=== PATIENT | male | born 1985 | race Two or more races ===

== ENCOUNTER 2022-06-23 | Outpatient (REF) | payer OTHER, SELFPAY ==
[2022-06-25 13:43] LABS: H Pylori Breath Test Negative (Negative)
== END 2022-06-23 00:01 | disposition home or self-care (01) ==
LOC: HO.LNP
PROVIDERS: Visit Provider Surgery
DX: E66.01 Morbid (severe) obesity due to excess calories (principal); K21.9 Gastro-esophageal reflux disease without esophagitis
CPT/HCPCS: 83013

== ENCOUNTER 2022-06-23 11:57 | Outpatient (REF) | payer OTHER, SELFPAY ==
--- NOTE | ~2022-06-23 | XR_ITS ---
EXAMINATION: XR CHEST CLINICAL INFORMATION: Obesity COMPARISON: None TECHNIQUE: 2 views of the chest were obtained. FINDINGS: The cardiac and mediastinal contours are normal. The lungs are clear. No pleural effusion or pneumothorax. Degenerative changes of the spine. XR/XR chest 2V IMPRESSION: No evidence for acute disease in the chest.
--- NOTE | 2022-06-23 12:03 | ECG_ITS ---
Test Reason : OBESITY Blood Pressure : / mmHG Vent. Rate : 070 BPM Atrial Rate : 070 BPM P-R Int : 180 ms QRS Dur : 094 ms QT Int : 354 ms P-R-T Axes : 045 047 016 degrees QTc Int : 382 ms Normal sinus rhythm Normal ECG No previous ECGs available Referred By: Jluis Johnson Electronically Signed By:SHAYLA TROY MD
[2022-06-23 12:24] LABS: MANUAL DIFF FLAG NO
[2022-06-23 13:52] LABS: Basophils Percent Auto 0.5 % (0-2); Eosinophils Absolute Auto 0.3 X10*3/uL (0.0-0.4); Hematocrit 45.1 % (42.0-52.0); Hemoglobin 15.3 g/dl (14.0-18.0); Lymphocytes Absolute Auto 1.1 X10*3/uL (1.2-4.9); Lymphocytes Percent Auto 27.2 % (20-40); Mean Corpuscular HGB Conc 33.9 g/dl (31.0-36.0); Mean Corpuscular Hemoglobin 28.5 pg (27.0-33.0); Mean Corpuscular Volume 84.1 fL (80.0-98.0); Mean Platelet Volume 11.7 fL (9.4-12.4); Monocytes Absolute Auto 0.3 X10*3/uL (0.1-1.2); Monocytes Percent Auto 7.2 % (2-11); Neutrophils Absolute Auto 2.5 x10*3/uL (2.0-8.3); Neutrophils Percent Auto 59.1 % (45-73); Platelet Count 206 X10*3/uL (160-400); Red Blood Count 5.36 X10*6/uL (4.60-5.80); Red Cell Distribution Width 13.2 % (11.0-16.0); White Blood Count 4.2 X10*3/uL (4.8-10.8)
[2022-06-23 14:22] LABS: Estimated Average Glucose 120 mg/dL; Hemoglobin A1c % 5.8 %
[2022-06-23 14:24] LABS: Alanine Aminotransferase 23 U/L (0-40); Albumin Level 4.4 g/dL (3.5-5.0); Alkaline Phosphatase 66 U/L (39-117); Anion Gap 14 (12-20); Aspartate Amino Transferase 15 U/L (5-37); Bilirubin Total 0.4 mg/dL (0.0-1.0); Blood Urea Nitrogen 23 mg/dL (9-16); C Reactive Protein 0.59 mg/dL (< or = 0.50); Carbon Dioxide 24 mmol/L (22-29); Chloride 107 mmol/L (96-108); Cholesterol 164 mg/dL; Estimated Glomerular Filt Rate > 60; Glucose Random 108 mg/dL (60-115); HDL Cholesterol 29 mg/dL; Iron 80 mcg/dL (45-160); LDL Cholesterol Calculated 123 mg/dl; Percent Iron Saturation 27 % (15-50); Potassium 4.6 mmol/L (3.3-5.1); Sodium 140 mmol/L (135-145); Total Iron Binding Capacity 299 mcg/dL (228-428); Total Protein 7.4 g/dL (6.5-8.0); Triglycerides 63 mg/dL; Unsaturated Iron Binding 219 ug/dL
[2022-06-23 14:46] LABS: Ferritin 151 ng/mL (20-250); Insulin 17 uU/mL (2-29); TSH reflex Free T4 0.99 uIU/mL (0.32-4.0)
[2022-06-23 14:51] LABS: Vitamin B12 429 pg/mL (200-900)
[2022-06-23 15:27] LABS: Vitamin D 25-OH Total 13.6 ng/mL (>30)
[2022-06-24 10:56] LABS: Calcium (PTHI) 9.2 mg/dL (8.6-10.3); PTHI 71 pg/mL (16-77)
[2022-06-28 06:41] LABS: Vitamin B1 9 nmol/L (8-30)
[2022-06-28 22:07] LABS: Zinc 87 mcg/dL (60-130)
[2022-07-01 10:54] LABS: Vitamin A 50 mcg/dL (38-98)
== END 2022-06-23 11:58 | disposition home or self-care (01) ==
LOC: HO.XRAY 11:57
PROVIDERS: Visit Provider Surgery
DX: E66.01 Morbid (severe) obesity due to excess calories (principal); K21.9 Gastro-esophageal reflux disease without esophagitis
CPT/HCPCS: 36415; 71046; 80053; 80061; 82306; 82607; 82728; 82746; 83036; 83525; 83540; 83970; 84425; 84443; 84590; 84630; 85025; 86140; 93005; 99211

== ENCOUNTER → 2022-07-21 10:14 | Outpatient (BNVA) | payer OTHER, SELFPAY | PROVIDERS: Visit Provider Dietitian, Registered | DX: E66.9 Obesity, unspecified (principal); Z68.38 Body mass index [BMI] 38.0-38.9, adult | CPT/HCPCS: 97802 ==

== ENCOUNTER 2022-08-11 08:54 | Outpatient (REF) | payer OTHER, SELFPAY ==
--- NOTE | ~2022-08-11 | FL_ITS ---
EXAMINATION: XR FLUOROSCOPY UPPER GI WITH AIR CLINICAL INFORMATION: Morbid/severe obesity due to excess calories. COMPARISON: None. TECHNIQUE: Routine upper GI air-contrast study was performed. FINDINGS: Following oral administration of thick barium and effervescent granules, there is normal propagation of bolus from the oral cavity through the pharynx and esophagus and into the stomach without any evidence of obstruction, narrowing or stricture. On placing patient supine and prone lying, the course, caliber and peristalsis of stomach, duodenal bulb and the sweep are normal. The mucosal pattern of stomach, duodenal bulb and the CBD is normal. No gastroesophageal reflux or hiatal hernia seen. FLUOROSCOPY TIME: 1.9 minutes. DOSE AREA PRODUCT: 40.355 uGy-m2 (microgray-meter squared). FL/FL upper GI w air IMPRESSION: Unremarkable upper GI air-contrast study.
--- NOTE | ~2022-08-11 | US_ITS ---
EXAMINATION: US COMPLETE ABDOMEN WITH LIVER ELASTOGRAPHY CLINICAL INFORMATION: Morbid/severe obesity due to excess calories. COMPARISON: None. TECHNIQUE: Real-time imaging of the abdominal viscera. Noninvasive ultrasound liver fibrosis assessment is performed using Lisa ElastPQ point quantification shear wave elastography (2D-SWE) with a C5-2 MHz transducer. Multiple elastography samples are obtained. FINDINGS: PANCREAS: The pancreatic duct measures 0.2 cm The visualized pancreatic head and body are normal in appearance. The remainder of the pancreas is obscured from visualization by the overlying bowel gas. ABDOMINAL AORTA: The proximal, middle, and distal aortic segments are normal in caliber. INFERIOR VENA CAVA: Visualized portions are normal. LIVER: The liver demonstrates normal size, contour and increased echogenicity. No focal lesion or intrahepatic biliary duct dilatation. The right lobe measures 20.8 cm in length. The left lobe measures 11.7 cm in length. Portal flow is hepatopedal Shear wave liver elastography median stiffness is 1.80 m/s (reference: normal median stiffness is 1.3 m/s or less). IQR/median stiffness to assess sampling precision is 0.04 (reference: good quality data set is IQR/median stiffness of 0.15 or less). GALLBLADDER: There is a small gallbladder nonmobile echogenic polyp measuring 0.5 x 0.4 x 0.6 cm. Several additional polyps are noted as well. There is a ring down artifact seen along the gallbladder wall likely adenomyomatosis. No echogenic stones seen. COMMON BILE DUCT: Normal in caliber measuring 0.6 cm in diameter. RIGHT KIDNEY: Normal. No hydronephrosis. No renal calculi or focal parenchymal lesions. The kidney measures 11.3 cm in maximum dimension. LEFT KIDNEY: Normal. No hydronephrosis. No renal calculi or focal parenchymal lesions. The kidney measures 9.7 cm in maximum dimension. SPLEEN: Normal. The spleen measures 14.1 cm in maximum dimension. FREE FLUID: None. US/US abdomen comp w elastography IMPRESSION: 1. Multiple gallbladder polyps and likely adenomyomatosis. No echogenic stones seen. No pericholecystic fluid collection. 2. Mild hepatic steatosis without focal lesion. 3. Liver elastography: Median liver stiffness measures 1.80 m/s corresponding to cACLD suggestive. REFERENCE: Society of Radiologists in Ultrasound Liver Stiffness Thresholds (2019): LIVER STIFFNESS THRESHOLDS: *Liver Stiffness equal or less than 1.3 m/s: High probability of being normal. *Liver Stiffness less than 1.7 m/s: In the absence of other known clinical signs, rules out compensated advanced chronic liver disease. *Liver Stiffness 1.7-2.1 m/s: Suggestive of compensated advanced chronic liver disease but need further test for confirmation. *Liver Stiffness over 2.1 m/s: Rules in compensated advanced chronic liver disease. *Liver Stiffness over 2.4 m/s: Suggestive of clinically significant portal hypertension. QUALITY OF DATA SET: *IQR/Median value equal or less than 0.15 implies a quality data set. *IQR/Median value over 0.15 implies a poor quality data set. SIGNIFICANT CHANGE FROM PRIOR EXAM: Significant change if liver stiffness measurement is 10% or greater from prior exam. OTHER CONSIDERATIONS: The stage of liver fibrosis may be overestimated in the setting of acute hepatitis, liver inflammation, elevated liver function tests, hepatic vascular congestion, obstructive cholestasis, non-fasting state, and infiltrative diseases such as amyloidosis and lymphoma. In some patients with NAFLD, the liver stiffness thresholds for compensated advanced chronic liver disease may be lower. In causes other than viral hepatitis and NAFLD, liver stiffness thresholds are not well established.
== END 2022-08-11 08:55 | disposition home or self-care (01) ==
LOC: HO.US 08:54
PROVIDERS: Visit Provider Surgery
DX: E66.01 Morbid (severe) obesity due to excess calories (principal); K21.9 Gastro-esophageal reflux disease without esophagitis; Z68.37 Body mass index [BMI] 37.0-37.9, adult
CPT/HCPCS: 74246; 76705; 76981

== ENCOUNTER → 2022-08-18 08:11 | Outpatient (BNVA) | payer OTHER, SELFPAY | PROVIDERS: Visit Provider Counselor Mental Health | DX: F43.20 Adjustment disorder, unspecified (principal); E66.9 Obesity, unspecified | CPT/HCPCS: 90791 ==

== ENCOUNTER → 2022-09-01 08:24 | Outpatient (BNVA) | payer OTHER, SELFPAY | PROVIDERS: Visit Provider Surgery | DX: Z13.89 Encounter for screening for other disorder (principal) ==

== ENCOUNTER → 2022-09-08 10:50 | Outpatient (BNVA) | payer OTHER, SELFPAY | PROVIDERS: Visit Provider Surgery | DX: Z13.89 Encounter for screening for other disorder (principal) ==

== ENCOUNTER 2022-09-16 10:02 | Inpatient (IN) | payer OTHER, SELFPAY ==
[2022-09-08 09:26] VITALS: BMI 36.4
[2022-09-08 12:01] LABS: MANUAL DIFF FLAG NO
[2022-09-08 12:30] LABS: Basophils Percent Auto 0.5 % (0-2); Eosinophils Absolute Auto 0.4 X10*3/uL (0.0-0.4); Eosinophils Percent Auto 9.7 % (0-4); Hematocrit 44.9 % (42.0-52.0); Hemoglobin 15.1 g/dl (14.0-18.0); Imm Gran Abs Auto 0.01 X10*3/uL (0.00-0.03); Imm Gran Pct Auto 0.3 % (0.0-0.4); Lymphocytes Absolute Auto 1.4 X10*3/uL (1.2-4.9); Lymphocytes Percent Auto 38.8 % (20-40); Mean Corpuscular HGB Conc 33.6 g/dl (31.0-36.0); Mean Corpuscular Hemoglobin 28.3 pg (27.0-33.0); Mean Corpuscular Volume 84.1 fL (80.0-98.0); Mean Platelet Volume 11.2 fL (9.4-12.4); Monocytes Absolute Auto 0.3 X10*3/uL (0.1-1.2); Monocytes Percent Auto 7.5 % (2-11); Neutrophils Absolute Auto 1.6 x10*3/uL (2.0-8.3); Neutrophils Percent Auto 43.2 % (45-73); Platelet Count 233 X10*3/uL (160-400); Red Blood Count 5.34 X10*6/uL (4.60-5.80); Red Cell Distribution Width 12.7 % (11.0-16.0); White Blood Count 3.7 X10*3/uL (4.8-10.8)
[2022-09-08 12:33] LABS: INTERNATIONAL NORM RATIO 1.1 (0.9-1.1); Prothrombin Time 12.6 SEC (10.0-13.1)
[2022-09-08 12:54] LABS: Estimated Average Glucose 108 mg/dL; Hemoglobin A1c % 5.4 %
[2022-09-08 13:08] LABS: Alanine Aminotransferase 26 U/L (0-40); Albumin Level 4.1 g/dL (3.5-5.0); Alkaline Phosphatase 55 U/L (39-117); Anion Gap 12 (12-20); Aspartate Amino Transferase 16 U/L (5-37); Bilirubin Total 0.6 mg/dL (0.0-1.0); Blood Urea Nitrogen 13 mg/dL (9-16); C Reactive Protein 0.23 mg/dL (< or = 0.50); Calcium 9.6 mg/dL (8.4-10.2); Carbon Dioxide 28 mmol/L (22-29); Chloride 106 mmol/L (96-108); Cholesterol 162 mg/dL; Creatinine Clr Calc Pharmacy 138.7; Estimated Glomerular Filt Rate > 60; Glucose Random 113 mg/dL (60-115); HDL Cholesterol 29 mg/dL; LDL Cholesterol Calculated 115 mg/dl; Potassium 4.8 mmol/L (3.3-5.1); Sodium 141 mmol/L (135-145); Total Protein 6.9 g/dL (6.5-8.0); Triglycerides 90 mg/dL
[2022-09-08 13:14] LABS: Insulin 9 uU/mL (2-29); TSH reflex Free T4 1.41 uIU/mL (0.32-4.0)
--- NOTE | 2022-09-12 22:58 | MHC.SHP ---
Pre-Procedural Eval Section A Date of Service: 09/12/22 The patient is an INPATIENT: Yes The History & Physical has been completed within 30 days and I have reviewed it.: Yes Section B Chief Complaint: Obesity, unspecified Relevant Family History (Specify if Yes): No Relevant Social History: None Present Medications: None Medical History: No relevant PMH History of Previous Operations: No relevant previous surgery Allergies: Allergies Allergy/AdvReac Type Severity Reaction Status Date / Time FISH Allergy Mild HIVES Uncoded 09/05/22 16:22 Review of Systems Sugical H&P ROS: Negative: Constitution, Cardiovascular, Respiratory, Neurological, Psychiatric, Hem-Onc, Allergic/Immunologic, Gastrointestinal, Genitourinary, Musculoskeletal, Integumentary, Endocrine and Eyes/Ears/Nose/Throat Exam Surgical H&P Exam: Normal: HEENT, Normal: Heart, Normal: Lungs, Normal: Extremities, Normal: Abdomen, Normal: Skin and Normal: Neurological Plan Diagnosis/Plan: Unchanged I have reviewed the history and physical and performed a pertinent physical examination on my patient. No changes have occurred unless specified. Time Spent With Patient Time: Total time managing care of this patient today ____ minutes.
[2022-09-15 13:06] LABS: COVID-19 Test Negative (Negative); IDNOW Serial# 16C4AD1C
[2022-09-16] VITALS (13 sets, daily range): BP systolic 115–167; BP diastolic 68–103; PULSE 65–89; RESP 11–19; TEMP 36.1–37.1; O2SAT 99–100
[2022-09-16] MEDS: Lactated Ringers 1,000 ML 999 ML IV (10:51)
--- NOTE | 2022-09-16 12:54 | PM.OP ---
Brief Operative Note Date of Service: 09/16/22 Pre-op diagnosis: Severe obesity with comorbidities (see below) Post-op diagnosis: same (& congenital abdominal adhesions) Procedure: INITIAL PATIENT BMI ON PRESENTATION AT OUR OFFICE: 40.4 kg/m2 LAST BMI BEFORE SURGERY: 34.1 kg/m2 COMORBIDITIES: GERD, liver fibrosis, gallbladder polyp and adenomyomatosis ?The patient presented to the Weight Management Program with significant obesity that was negatively impacting the patient's comorbidities as listed above.? The program is a phased program with a special focus on preoperative medical weight management to promote substantial weight loss and prepare the patients for the second phase of the program: bariatric surgery. The patient participated in an intensive weekly lifestyle ?intervention and exercise program during which the patient ?has lost between the initial office visit and the last preoperative visit 34.8lbs, or 11.05% of initial actual body weight. It was deemed appropriate for the patient to now have bariatric surgery. In light of the current Covid-19 pandemic and the well documented strong association of obesity and increased risk of worse outcomes if infected with Covid-19 (REFERENCES:https://pubmed.ncbi.nlm.nih.gov/27400415/,?https://pubmed.ncbi.nlm.nih.gov/36592964/), any delay in undergoing bariatric surgery may lead to the patient's worsening health condition and increased?risk of more severe Covid-19 disease if infected. In addition a recent?study from [facility] published in [employer] on 07/29/2021 ([email or web address]) found that, among patients with obesity, substantial weight loss achieved with surgery was associated with improved outcomes of COVID-19 infection. The findings suggest that obesity can be a modifiable risk factor for the severity of COVID-19 infection. In addition, the patient met the BMI-criteria for bariatric surgery based on the BMI on initial presentation. The patient should not be penalized for achieving such weight loss because ?it is not sustainable long-term without surgical intervention and it was achieved in preparation for bariatric surgery ?under my direction and based on my published research ([email or web address] and?https://www.soard.org/article/[email or web address])15230-X/pdf) ?that a 10% preoperative weight loss improves long-term weight loss after surgery and reduces perioperative complications.? Insurance carriers such as [facility] have endorsed my recommendations ?and have included in their policies criteria to include a 10% preoperative weight loss requirement. PROCEDURE: Esophago-gastroscopy, laparoscopic lysis of adhesions, laparoscopic sleeve gastrectomy and laparoscopic gastropexy INDICATIONS: This is a 53 year-old female who was electively scheduled for laparoscopic, possibly open sleeve gastrectomy. The risks and complications of the procedure were discussed with the patient in advance, particularly the possibility of ; pulmonary embolism; staple line leak; bleeding; GERD; cardiac, pulmonary, or renal complications; as well as long-term problems such as insufficient weight loss, vitamin deficiency, strictures, or ulcers. The patient understood all the risks, and was in agreement to proceed with surgery. DESCRIPTION OF PROCEDURE: After informed consent was obtained from the patient, the patient was given preoperative antibiotics, and was transferred to the operating room. After successful induction of general anesthesia, pneumatic compression devices were placed on both lower extremities. An upper endoscopy was performed next. The oropharynx and esophagus appeared to be within normal limits. There was no diaphragmatic hernia present consistent with the findings of the preoperative upper GI. The stomach was entered. Then after all fluid and air were suctioned and the stomach was fully decompressed, the scope was withdrawn and secured in the mid esophagus. The patient was then prepped and draped in the usual sterile manner, and abdominal access was established at the right upper quadrant with the Filomena technique. A 12 mm blunt port was inserted, and the abdomen was insufflated with CO2 to a pressure of 15 mmHg. Under direct visualization, additional ports were placed, specifically two 5 mm Versi-step ports to the left upper quadrant, and a 5 mm Versi-Step port to the right upper quadrant. 1% lidocaine plain was used to infiltrate all port sites as well as all fascia defects. Using the EndoClose suture passer device, I placed a #1 Polysorb tie across the falciform ligament in order to retract it up against the abdominal wall and prevent injury of the ligament with our instruments during the procedure. Following that, the patient was placed in a steep reverse Trendelenburg position. An additional 5 mm port was placed to the right flank for the Mediflex retractor that was used to retract the left lobe of the liver. The gastro-esophageal fat pad was opened with the ultrasonic device (Thunderbeat, Olympus) and the anterior esophagus and hiatus were exposed. The angle of His was opened with the ultrasonic device the fundus of the stomach from any diaphragmatic and splenic attachments. I then opened the gastrocolic ligament between the transverse colon and the greater curvature of the stomach with the ultrasonic device to enter the lesser sac and facilitate the ligation of the short gastric vessels. I started at a mid-point along the greater curvature and using the Thunderbeat, all short gastric vessels were divided all the way to the angle of His until the left beatriz was completely dissected at its entirety. I then divided the gastro-colic ligament distally to a distance of about 3-4 cm proximal to the pylorus. There were extensive congenital adhesions between the pancreas and posterior gastric wall. Those were lysed completely with the ultrasonic device. Adhesiolysis took approximately 45 min to complete. The stomach was then divided transversely with one Endo JUNAID-45 purple, two JUNAID-45 orange loads and three JUNAID-60 articulating orange loads using the AEON stapler and loads. Every effort was made that the gastric sleeve had a tubular shape and an even caliber throughout. Once the sleeve resection was completed, the staple line of the gastric sleeve was reinforced with Hemoclips. The resected stomach was retrieved without difficulty from the Filomena port. A gastropexy was then performed in order to prevent postoperative GERD and partial gastric volvulus. Several interrupted 2.0 Surgidac sutures were placed between the sleeve's staple line and the previously divided greater omentum and gastro-colic ligament using the Endo-Stitch device. ?An upper endoscopy was performed. There was no narrowing at the GE junction. The scope was easily advanced all the way to the pylorus which was clearly visualized. There was no narrowing anywhere and the sleeve's caliber was even throughout. The sleeve's staple line was inspected and there was no evidence of ischemia, bleeding or dehiscence. At that point the gastroscope was withdrawn from the patient?s mouth while we were decompressing the bowel and the stomach from any remaining air. I looked into the lesser sac to see how the sleeve was situating and it was situating well. There was no bleeding from the staple line, spleen, or short gastric vessels. The Mediflex retractor was removed, and the undersurface of the liver was inspected and there was no bleeding. The patient was placed in supine position. I closed the fascial defect of the 12 mm port site with a figure of eight #1 Polysorb suture. Then 30cc Ropivacaine plain with 10 mg of Dexamethasone were used to infiltrate the fascial closure as well as all skin incisions. A total of 7ml Zynrelef was applied in the Filomena wound. At this point, the abdomen was deflated, all ports were removed under direct vision, and no bleeding was noted from any of the port sites. The skin incisions were irrigated with saline and were closed with 4-0 absorbable monofilament sutures. Steri-Strips and OpSites were used to cover all incisions. The patient was extubated and was transferred in stable condition to the recovery room for further care. I was present and performed all nunez parts of the procedure. Ms. Sierrason was the endodontic assistant. There were no residents to assist with this case. Elliott Johnson MD, PhD, FACS Surgeon: Jluis Johnson MD Anesthesia: GETA, local and other (TAP block with 7ml of Zynrelef) Was an Broadcast Chief Engineer used for this Procedure?: No Broadcast Chief Engineer: Nidia Junior Estimated blood loss (mL): 10 IV fluids (mL): 2,600 Urine output (mL): 0 (No Rainey to record output) Pathology: other (Stomach) Condition: stable Disposition: PACU
--- NOTE | 2022-09-16 12:55 | P.CONAN_ITS ---
HPI - Anesthesia Eval Consult details Narrative: 37 M for gastric sleeve PMFSH Active Problems Active Problems: All Active Problems (Updated 09/01/22 @ 10:50 by Jluis Johnson MD) BMI 35.0-35.9,adult (Acute) Adjustment disorder, unspecified (Acute) Binge-eating disorder, in full remission, mild (Acute) BMI 37.0-37.9, adult (Acute) Obesity (Acute) Vitamin B12 deficiency (Acute) Vitamin D deficiency (Acute) GERD (gastroesophageal reflux disease) (Acute) Morbid obesity (Acute) Past Medical History Medical History (Updated 09/16/22 @ 22:40 by Jluis Johnson MD) GERD (gastroesophageal reflux disease) Morbid obesity Functional capacity: independent ambulation Family History Family History Mother Diabetes Father No problems noted. Sister No problems noted. Sister No problems noted. Daughter Epilepsy Autism Family history of problems with anesthesia: No Surgical History Surgical History No pertinent past surgical history History of Problems with Anesthesia: No Social History Social History Are you a primary healthcare administrator to a significant other at home: No Do you presently have visiting nurse or other home services: No Alcohol intake: never Patient Tobacco Use Status: Former Tobacco user Quit Date: 2013 Tobacco use type: Cigarette Meds Allergies Allergy/AdvReac Type Severity Reaction Status Date / Time FISH Allergy Mild HIVES Uncoded 09/05/22 16:22 Exam Exam Date and Time: September 16, 2022 1255 Height,Weight and Vital Signs: Height 6 ft 2 in Weight 128.82 kg Last Vital Signs Temp 97.0 F 09/16/22 10:20 Pulse 65 09/16/22 10:20 Resp 16 09/16/22 10:20 BP 115/68 09/16/22 10:20 Pulse Ox 99 09/16/22 10:20 O2 Del Method 09/16/22 10:20 Pertinent Lab Results Pertinent Lab Results: Laboratory Tests 09/08/22 09/08/22 09/08/22 11:59 11:59 11:59 WBC 3.7 L RBC 5.34 Hgb 15.1 Hct 44.9 MCV 84.1 MCH 28.3 MCHC 33.6 RDW 12.7 Plt Count 233 MPV 11.2 Immature Gran % (Auto) 0.3 Neut % (Auto) 43.2 L Lymph % (Auto) 38.8 [place] % (Auto) 7.5 Eos % (Auto) 9.7 H Baso % (Auto) 0.5 Lymph # (Auto) 1.4 [place] # (Auto) 0.3 Eos # (Auto) 0.4 Baso # (Auto) 0.0 Abs Immat Gran (auto) 0.01 Absolute Neuts (auto) 1.6 L Absolute Nucleated RBC 0.000 Nucleated RBC % (auto) 0.0 PT 12.6 INR 1.1 APTT 39.0 H Sodium 141 Potassium 4.8 Chloride 106 Carbon Dioxide 28 Anion Gap 12 BUN 13 Creatinine 1.06 Estim Creat Clear Calc 138.7 Estimated GFR > 60 Random Glucose 113 Estimat Average Glucose Hemoglobin A1c % Insulin Level 9 Calcium 9.6 D Total Bilirubin 0.6 AST 16 ALT 26 Alkaline Phosphatase 55 C-Reactive Protein 0.23 Total Protein 6.9 Albumin 4.1 Triglycerides 90 Cholesterol 162 LDL Cholesterol, Calc 115 HDL Cholesterol 29 TSH 1.41 COVID-19 (RAMYA) COVID-19 [employer] Com Blood Type Antibody Screen 09/08/22 09/08/22 09/15/22 11:59 12:00 12:44 WBC RBC Hgb Hct MCV MCH MCHC RDW Plt Count MPV Immature Gran % (Auto) Neut % (Auto) Lymph % (Auto) [place] % (Auto) Eos % (Auto) Baso % (Auto) Lymph # (Auto) [place] # (Auto) Eos # (Auto) Baso # (Auto) Abs Immat Gran (auto) Absolute Neuts (auto) Absolute Nucleated RBC Nucleated RBC % (auto) PT INR APTT Sodium Potassium Chloride Carbon Dioxide Anion Gap BUN Creatinine Estim Creat Clear Calc Estimated GFR Random Glucose Estimat Average Glucose 108 Hemoglobin A1c % 5.4 Insulin Level Calcium Total Bilirubin AST ALT Alkaline Phosphatase C-Reactive Protein Total Protein Albumin Triglycerides Cholesterol LDL Cholesterol, Calc HDL Cholesterol TSH COVID-19 (RAMYA) Negative COVID-19 Clin Com See Note Blood Type O Positive Antibody Screen NEGATIVE Airway Mallampati Class: III TM Dist: >3cm Neck ROM: Full Loose/Missing/Broken Teeth: Yes (Chipped upper ) Assessment and Plan Assessment Anesthesia Assessment: Anesthesia Plan Discussed and Chart Reviewed Final Anesthetic Review Family History of Problems with Anesthesia: No History of Problems with Anesthesia: No NPO: Yes ASA Class: II Final Preanesthetic Review: Meds/Allgs Chart Reviewed, Consent Obtained/Reviewed and Anes Risks/Benef Reviewed Patient Risk: Intermediate Procedure Risk: Intermediate Assessment/Block/Sedation in SS: Assess/Block/Sedation-SS Anesthetic Plan Anesthetic Plan: GA and Agree w/ Assess. and Plan Disposition: Standard PACU
--- NOTE | 2022-09-16 12:55 | PM.PNGS ---
Subjective Subjective Date of Service: 09/17/22 Interval history: Patient has mild incisional pain, but was able to ambulate and use the incentive spirometer. She is tolerating phase 1 bariatric diet Physical Exam Vital Signs: Vital Signs: Last Vital Signs Temp 97.0 F 09/16/22 10:20 Pulse 65 09/16/22 10:20 Resp 16 09/16/22 10:20 BP 115/68 09/16/22 10:20 Pulse Ox 99 09/16/22 10:20 O2 Del Method 09/16/22 10:20 BMI result Body Mass Index 36.4 GI: Inspection: Yes normal to inspection, Yes incision (clean, dry and intact) and Yes obesity Palpation (GI): Soft to palpation Extrem: Right lower extremity: normal to inspection (no calf tenderness) Left lower extremity: normal to inspection (no calf tenderness) Objective Data Labs 09/08/22 11:59 09/08/22 11:59 Labs: Laboratory Results - last 24 hr 09/15/22 12:44 COVID-19 (RAMYA) Negative COVID-19 Clin Com See Note Procedures Date of Service Date of Service: 09/17/22 Progress Note: A&P Assessment and plan (1) Obesity: Status: Acute Assessment and Plan: s/p laparoscopic sleeve gastrectomy, lysis of adhesions and gastropexy Doing well Check am labs. If OK, will discharge home (2) BMI 34.0-34.9,adult: Status: Acute (3) GERD (gastroesophageal reflux disease): Status: Acute (4) Liver fibrosis: Status: Acute (5) Adenomyomatosis of gallbladder: Status: Acute (6) Gallbladder polyp: Status: Acute (7) S/P laparoscopic sleeve gastrectomy: Status: Acute (8) Congenital intra-abdominal adhesions: Status: Acute Time Spent With Patient Time: Total time managing care of this patient today ____ minutes. Quality Stroke Does the patient have a stroke diagnosis?: No VTE Prior VTE?: No VTE Risk Level:: Surgical - moderate VTE Device Contraindication: N/A - Device Ordered VTE Drug Contraindication: Treatment Not Indicated
--- NOTE | 2022-09-16 15:45 | P.DS_ITS ---
DS: Providers Provider Date of Service: 09/17/22 Date of admission: 09/16/22 10:02 Primary care physician: Unknown Physician DS: Diagnosis Discharge Diagnosis (1) Obesity: Status: Acute (2) BMI 34.0-34.9,adult: Status: Acute (3) GERD (gastroesophageal reflux disease): Status: Acute (4) Liver fibrosis: Status: Acute (5) Adenomyomatosis of gallbladder: Status: Acute (6) Gallbladder polyp: Status: Acute DS: Summary Hospital Course Hospital Course: ADMITTING DIAGNOSIS: morbid obesity, GERD DISCHARGE DIAGNOSIS: same, s/p laparoscopic sleeve gastrectomy PAST SURGICAL HISTORY: none PROCEDURE: upper endoscopy, laparoscopic sleeve gastrectomy DISCHARGE SUMMARY: History of Present Illness: The patient is a 37 year-old woman with a BMI of 40.4 kg/m2 and associated co- morbidities as described above. The patient had extensive work-up, lost 27.6 lbs preoperatively and was electively scheduled for laparoscopic, possible open sleeve gastrectomy and gastropexy. Risks and complications of the surgery were discussed with the patient in advance, particularly the possibility of , pulmonary embolism, anastomotic leak, bleeding, bowel injury, GERD, cardiac, renal or pulmonary complications. The patient understood all the risks and was in agreement with the surgical plan. Hospital Course: The patient underwent an uneventful laparoscopic sleeve gastrectomy with gastropexy on the day of admission. Postoperatively, the patient was transferred to the surgical floor. The patient received IV Acetaminophen and IV dilaudid for pain control. Patient was started on bariatric phase 1 diet POD #0. On postoperative day one, the patient was feeling well without nausea, vomiting, fevers, or tachycardia. The patient had some mild incisional pain and the abdomen was soft. On the morning of postoperative day one, the patient was continued on 1 ounce of water or ice every half hour. During the day, the patient did fairly well, having some incisional pain, but able to ambulate adequately and to tolerate liquids well. Since the patient is doing well, we decided that the patient was ready to be discharged. The patient was given instructions to follow-up with me next week and to call my office for any fever over 101, persistent abdominal pain, nausea, vomiting, GERD, symptoms of DVT such as calf tenderness, or leg swelling, or pulmonary embolism such as chest pain or shortness of breath. The patient was also instructed to drink 40-60 ounces of liquids per day using the 1-ounce cups. The patient had been given prescriptions for Tylenol for pain, Zofran prn for nausea, and pantoprazole and carafate previously. The patient was encouraged to ambulate and use the incentive spirometer. The patient was allowed to shower, but no baths, and encouraged to stay active at home. All of these instructions were given to the patient personally. All questions were answered and the patient understood all instructions, the instructions were also given to the patient in print. Time Spent with Patient Time attestation: Total time managing care of this patient today ____ minutes. Discharge coordination time: Less than 30 minutes Quality: Safe Use of Opioids Does Pt have an Active Cancer Diagnosis on the Problem List?: No Quality: Stroke Does the patient have a stroke diagnosis?: No Physical Exam Vital Signs: Vital Signs: Last Vital Signs Temp 97.0 F 09/16/22 10:20 Pulse 65 09/16/22 10:20 Resp 16 09/16/22 10:20 BP 115/68 09/16/22 10:20 Pulse Ox 99 09/16/22 10:20 O2 Del Method 09/16/22 10:20 BMI result Body Mass Index 36.4 DS: Data Data Completed and Pending Pending studies at discharge: Pending at discharge 09/16/22 14:38 Surgical [PTH] Routine Discharge Plan Discharge Anticipated Discharge Date/Time: 09/17/22 10:43 Patient Disposition: Home, Self-Care Discharge Diagnosis: s/p sleeve gastrectomy Referrals: Physician,Unknown J [Primary Care Provider] - 1 Week Discharge Medications: Continued pantoprazole 40 mg tablet,delayed release (DR/EC) 40 mg PO DAILY Qty: 30 2RF sucralfate 100 mg/mL suspension 10 ml PO BID Qty: 400 2RF ondansetron HCl 4 mg tablet 4 mg PO Q12H Qty: 20 0RF Rx Instructions: Only use if you have nausea as needed Discontinued cholecalciferol (vitamin D3) 125 mcg (5,000 unit) capsule 125 mcg PO DAILY Qty: 30 2RF mecobalamin (vitamin B12) 1,000 mcg tablet,disintegrating 1,000 mcg sublingual DAILY Qty: 30 2RF Rx Instructions: place tablet under tongue and allow to dissolve for at least30 secs before swallowing omeprazole magnesium [Prilosec OTC] 20 mg tablet,delayed release (DR/EC) 20 mg PO DAILY Discharge Orders: Discharge Order (Routine); Ordered 09/17/22 Ordered By: Jluis Johnson Activity on Discharge: No heavy lifting Stand Alone Forms: Patient Portal Discharge page Care Plan Goals: weight loss Health Concerns: obesity Plan of Treatment: No tub baths, sex or returning to work until discussed at first post op appointment. No exercise, alcohol, tobacco or illegal drug use. Continue to use incentive spirometer hourly while awake. Walk in home for 5- 10 minutes every 2 hours during the first week. Continue phase 1 diet today and start phase 2 diet tomorrow morning. Follow all instructions in the bariatric handbook and call with any questions. 1. Please call your doctor or come back to the emergency room should any new symptoms arise. 2. You will receive a courtesy call from [facility] 24-48 hours after discharge. 3. Activity: abstain from alcohol, practice limited stair climbing, no bending, no driving, no exercise, no illicit substances, no lifting, no sex, no tub bath, no work. 4. Diet: continue as discussed with bariatric team.. 5. Dressing Change/Wound Care: Do not change or remove surgical dressings unless they are wet or soiled. 6. Call your doctor if: - Your temperature exceeds 101.5 F - You experience excessive pain or swelling - You have an unexpected reaction to medication - You have excessive bleeding - You experience continued vomiting/nausea - Your incision begins to separate - Your incision shows signs of infection such as increased redness, swelling, excessive pain, heat, or drainage (light blood or clear fluid is normal) 7. General instructions: No lifting greater than 5 lbs for the next 4 weeks[address] within 24 hours of taking narcotic pain medications. If you do not move your bowels in the next 2 days, please take milk of magnesia over the counter. Please follow the post op diet and do not advance your diet until you are seen in the office in about 2 weeks. Please walk around your home every hour or two to prevent blood clots from forming in your legs. You do not need to wake from sleeping to walk. Please sleep in a bed or couch to prevent kinking at the hips and knees. Please take your incentive spirometer (your lung maintenance shop technician) home with you and use it for the next few days to prevent pneumonias. You may shower, no hot tubs, baths or swimming pools. Please call the office with any questions or concerns such as increasing abdominal pain, fever, chills, shortness of breath, chest pain, leg pain or swelling, or redness or drainage from your incisions. Do not hesitate to contact the office with any questions at . The patient's medical history has been reviewed and they are considered low risk for post op DVT and therefore DVT prophylaxis is not considered necessary. Travel after surgery was reviewed. The patient has not disclosed any travel plans during the first 30 days after surgery and they have been advised that within the first 30 days after surgery any bus, plane, train or car travel over 2 hours in duration is contraindicated due to the possibility of developing blood clots from immobility. Any travel, needs to include periods of ambulation of 10 minutes in duration every 2 hours. The patient was instructed to discuss any plans for travel during this period with their bariatric surgeon. Assessment: stable post op sleeve gastrectomy Discharge Date/Time: 09/17/22 11:30
[2022-09-16] MEDS: Famotidine/PF 20 MG/2 ML VIAL IVPUSH ×2 (15:51→20:55)
[2022-09-16] MEDS: ondansetron HCL 4 MG/2 ML VIAL IVPUSH ×2 (16:01→23:36)
[2022-09-16] MEDS: Lactated Ringers 1,000 ML 100 ML IVCONT (16:01)
[2022-09-16 16:02] LABS: Hematocrit 43.5 % (42.0-52.0); Hemoglobin 14.8 g/dl (14.0-18.0)
[2022-09-16 16:24] LABS: Anion Gap 14 (12-20); Blood Urea Nitrogen 10 mg/dL (9-16); Calcium 8.8 mg/dL (8.4-10.2); Carbon Dioxide 23 mmol/L (22-29); Chloride 107 mmol/L (96-108); Creatinine Clr Calc Pharmacy 144.1; Estimated Glomerular Filt Rate > 60; Glucose Random 123 mg/dL (60-115); Potassium 4.2 mmol/L (3.3-5.1); Sodium 140 mmol/L (135-145)
[2022-09-16] MEDS: ceFAZolin Sodium/Dextrose,Iso 2 GM/50 ML PIGGYBACK IV (19:47)
[2022-09-16] MEDS: Acetaminophen 1,000 MG/100 ML PIGGYBACK 16.7 MG IV (20:55)
[2022-09-16] MEDS: 0.9 % Sodium Chloride Flush 3 ML SYRINGE IVFLUSH (20:55)
[2022-09-17] MEDS: Lactated Ringers 1,000 ML 100 ML IVCONT (01:57)
[2022-09-17] MEDS: Acetaminophen 1,000 MG/100 ML PIGGYBACK 16.7 MG IV ×2 (02:49→09:11)
[2022-09-17 04:00] VITALS: BP 137/90; PULSE 75; RESP 17; TEMP 36.3; O2SAT 97
[2022-09-17 05:39] LABS: MANUAL DIFF FLAG NO
[2022-09-17 05:44] LABS: Basophils Percent Auto 0.2 % (0-2); Hematocrit 42.7 % (42.0-52.0); Hemoglobin 14.6 g/dl (14.0-18.0); Imm Gran Abs Auto 0.02 X10*3/uL (0.00-0.03); Imm Gran Pct Auto 0.3 % (0.0-0.4); Lymphocytes Absolute Auto 0.8 X10*3/uL (1.2-4.9); Lymphocytes Percent Auto 13.2 % (20-40); Mean Corpuscular HGB Conc 34.2 g/dl (31.0-36.0); Mean Corpuscular Hemoglobin 28.3 pg (27.0-33.0); Mean Corpuscular Volume 82.8 fL (80.0-98.0); Mean Platelet Volume 10.8 fL (9.4-12.4); Monocytes Absolute Auto 0.3 X10*3/uL (0.1-1.2); Monocytes Percent Auto 5.2 % (2-11); Neutrophils Absolute Auto 5.1 x10*3/uL (2.0-8.3); Neutrophils Percent Auto 81.1 % (45-73); Platelet Count 216 X10*3/uL (160-400); Red Blood Count 5.16 X10*6/uL (4.60-5.80); Red Cell Distribution Width 12.6 % (11.0-16.0); White Blood Count 6.3 X10*3/uL (4.8-10.8)
[2022-09-17 06:05] LABS: Anion Gap 14 (12-20); Blood Urea Nitrogen 9 mg/dL (9-16); Calcium 8.8 mg/dL (8.4-10.2); Carbon Dioxide 24 mmol/L (22-29); Chloride 107 mmol/L (96-108); Estimated Glomerular Filt Rate > 60; Glucose Random 115 mg/dL (60-115); Potassium 4.6 mmol/L (3.3-5.1); Sodium 140 mmol/L (135-145)
[2022-09-17 07:48] VITALS: BP 123/74; PULSE 71; RESP 18; TEMP 36.7; O2SAT 98
[2022-09-17] MEDS: 0.9 % Sodium Chloride Flush 3 ML SYRINGE IVFLUSH (08:16)
[2022-09-17] MEDS: ondansetron HCL 4 MG/2 ML VIAL IVPUSH (08:16)
[2022-09-17] MEDS: Famotidine/PF 20 MG/2 ML VIAL IVPUSH (08:16)
--- NOTE | 2022-09-17 14:19 | HO.POSTANES ---
Post Anesthesia Evaluation Post Anesthesia Evaluation Vital Signs: Vital Signs Temp Pulse Resp BP Pulse Ox O2 Del Method 09/17/22 07:48 98.0 F 71 18 123/74 98 Room Air 09/17/22 04:00 97.4 F 75 17 137/90 H 97 Room Air Anesthesia: General Endotracheal-GETA Mental Status: Awake Pain Control: Satisfactory Nausea/Vomiting: None Hydration: Adequate Anesthesia-Related Issues: No Anes. Related Issues
== END 2022-09-17 11:30 | disposition home or self-care (01) | DRG 403 ==
LOC: HO.SSSA 15:45 → HO.S3 18:40
PROVIDERS: Physician Assistant; Physician Assistant Surgical; Admitting Provider Surgery; Visit Provider Surgery
PROC: 0DB64Z3 Excision of Stomach, Percutaneous Endoscopic Approach, Vertical (ICD-10-PCS; CPT 43845; principal; 2022-09-16 12:20)
DX: E66.01 Morbid (severe) obesity due to excess calories (principal); K74.00 Hepatic fibrosis, unspecified; Q43.3 Congenital malformations of intestinal fixation; K21.9 Gastro-esophageal reflux disease without esophagitis; K82.4 Cholesterolosis of gallbladder; Z20.822 Contact with and (suspected) exposure to COVID-19; K82.8 Other specified diseases of gallbladder; Z68.34 Body mass index [BMI] 34.0-34.9, adult; Z87.891 Personal history of nicotine dependence; Z79.899 Other long term (current) drug therapy
CPT/HCPCS: 36415; 80048; 80053; 80061; 83036; 83525; 84443; 85014; 85018; 85025; 85610; 85730; 86140; 86850; 86900; 86901; 87635; 88307; 88342; A4649; C9088; J0131; J0690; J1100; J1170; J2250; J2405; J2550; J2795; J3010

== ENCOUNTER → 2022-09-24 13:22 | Outpatient (BNVA) | payer OTHER, SELFPAY | PROVIDERS: Visit Provider Physician Assistant Surgical | DX: E66.9 Obesity, unspecified (principal); Z68.34 Body mass index [BMI] 34.0-34.9, adult; Z98.84 Bariatric surgery status | CPT/HCPCS: 99212 ==

== ENCOUNTER → 2022-10-06 13:51 | Outpatient (BNVA) | payer OTHER, SELFPAY | PROVIDERS: Visit Provider Dietitian, Registered | DX: E66.9 Obesity, unspecified (principal); Z68.34 Body mass index [BMI] 34.0-34.9, adult; Z98.84 Bariatric surgery status; Z71.3 Dietary counseling and surveillance | CPT/HCPCS: 97803 ==

== ENCOUNTER → 2022-10-13 13:17 | Outpatient (BNVA) | payer OTHER, SELFPAY | PROVIDERS: Visit Provider Dietitian, Registered | DX: E66.9 Obesity, unspecified (principal); Z68.34 Body mass index [BMI] 34.0-34.9, adult | CPT/HCPCS: 97803 ==

== ENCOUNTER → 2022-10-20 13:37 | Outpatient (BNVA) | payer OTHER, SELFPAY | PROVIDERS: Visit Provider Dietitian, Registered | DX: E66.9 Obesity, unspecified (principal); Z68.33 Body mass index [BMI] 33.0-33.9, adult | CPT/HCPCS: 97803 ==

== ENCOUNTER → 2022-10-31 13:42 | Outpatient (BNVA) | payer OTHER, SELFPAY | PROVIDERS: Visit Provider Dietitian, Registered | DX: K21.9 Gastro-esophageal reflux disease without esophagitis (principal); E66.01 Morbid (severe) obesity due to excess calories; Z68.33 Body mass index [BMI] 33.0-33.9, adult; Z71.3 Dietary counseling and surveillance | CPT/HCPCS: 97803 ==

== ENCOUNTER → 2022-11-14 14:13 | Outpatient (BNVA) | payer OTHER, SELFPAY | PROVIDERS: Visit Provider Dietitian, Registered | DX: E66.9 Obesity, unspecified (principal); Z68.32 Body mass index [BMI] 32.0-32.9, adult | CPT/HCPCS: 97803 ==